=== PATIENT | female | born 1980 | race Two or more races ===

== ENCOUNTER 2017-10-13 07:59 | Outpatient (CLI) | payer OTHER | END 2017-10-13 08:07 | disposition home or self-care (01) | LOC: RAD 07:59 → RX STUDY 08:45 | DX: R13.10 Dysphagia, unspecified (principal); M75.102 Unspecified rotator cuff tear or rupture of left shoulder, not specified as traumatic ==

== ENCOUNTER 2018-02-26 17:26 | Emergency (ER) | payer OTHER ==
[~2018-02-26] VITALS: Ht 157.5 cm; Wt 131.1 kg
[2018-02-26] MEDS ORDERED: COZAAR25 MG (17:46)
== END 2018-02-26 19:10 | disposition home or self-care (01) ==
LOC: ER 17:26
DX: G51.0 Bell's palsy (principal)